=== PATIENT | male | born 1985 | race Caucasian/White ===

== ENCOUNTER 2017-03-21 20:26 | Emergency (ER) | payer OTHER ==
[2017-03-21 20:28] VITALS: BP 173/100; PULSE 85; RESP 16; O2SAT 100
[2017-03-21 21:00] VITALS: TEMP 98
[2017-03-21] MEDS ORDERED: diphenhydrAMINE HCL 25 MG CAP PO ONE (21:15)
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
[2017-03-21 22:49] VITALS: BP 167/110; PULSE 73; RESP 16; TEMP 98.1; O2SAT 100
[2017-03-21 23:04] VITALS: BP 170/117
== END 2017-03-21 23:25 | disposition home or self-care (01) ==
LOC: NEPE 20:26
DX: T78.40XA Allergy, unspecified, initial encounter (principal); R03.0 Elevated blood-pressure reading, without diagnosis of hypertension; X58.XXXA Exposure to other specified factors, initial encounter; Y93.G3 Activity, cooking and baking; Y99.0 Civilian activity done for income or pay
CPT/HCPCS: 99282

== ENCOUNTER 2017-05-14 17:45 | Emergency (ER) | payer OTHER ==
[~2017-05-14] VITALS: Ht 188 cm; Wt 104.5 kg
[2017-05-14 17:50] VITALS: BP 168/109; PULSE 109; RESP 20; TEMP 98.6; O2SAT 98
[2017-05-14] MEDS ORDERED: TETANUS/DIPHTHERIA TOXOID ADULT 0.5 ML VIAL IM ONE (18:30)
[2017-05-14] MEDS ORDERED: GELATIN 12 MM/7 MM FOAM TOPICAL ONE (18:30)
[2017-05-14] MEDS ORDERED: CEPHALEXIN MONOHYDRATE 500 MG CAP PO ONE (18:30)
[2017-05-14] MEDS ORDERED: HYDR-3516 PO (19:07)
[2017-05-14] MEDS ORDERED: CEPH-460 PO (19:07)
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
[2017-05-14] MEDS ORDERED: ACETAMINOPHEN/HYDROcodone 325 MG/5 MG TAB PO ONE (19:15)
== END 2017-05-14 19:43 | disposition home or self-care (01) ==
LOC: NEPD 17:45
DX: S61.012A Laceration without foreign body of left thumb without damage to nail, initial encounter (principal); W26.0XXA Contact with knife, initial encounter; Y93.G1 Activity, food preparation and clean up; Y99.0 Civilian activity done for income or pay; Z23 Encounter for immunization
CPT/HCPCS: 12001; 90471; 90714

== ENCOUNTER 2017-09-15 21:45 | Emergency (ER) | payer OTHER ==
[~2017-09-15] VITALS: Ht 185.4 cm; Wt 105.0 kg
[~2017-09-15 21:45] MED LIST: CEPH-460 PO; HYDR-3516 PO
[2017-09-15] MEDS ORDERED: PROT40TA PO (21:51)
[2017-09-15 22:03] VITALS: BP_SYST 173; BP_SYST 179; BP_DIAS 114; BP_DIAS 120; PULSE 92; RESP 18; O2SAT 98
[2017-09-15] MEDS ORDERED: OMEP40CA2 PO (22:05)
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
[2017-09-15] MEDS ORDERED: ACETAMINOPHEN 325 MG TAB PO ONE (22:45)
--- NOTE | 2017-09-15 23:03 | RADRPT ---
EXAM DATE: 09/15/2017 10:57 PM EDT AGE/SEX: 32 years / Male INDICATIONS: Trauma. Hit top of head on metal shelve. CLINICAL DATA: This is the patient's initial encounter. Patient reports that signs and symptoms have been present for 1 day and indicates a pain score of 5/10. MEDICAL/SURGICAL HISTORY: . Substance abuse . RADIATION DOSE: 56.35 CTDI (mGy) COMPARISON: No prior exams available for comparison. TECHNIQUE: CT of the head without contrast. Using automated exposure control and adjustment of the mA and/or kV according to patient size, radiation dose was kept as low as reasonably achievable to ob tain optimal diagnostic quality images. FINDINGS: There is no evidence for intracranial hemorrhage, mass effect, mass lesions, edema, or extr a-axial fluid collections. The visualized bony structures appear intact. The ventricles are normal size for the patient's age. There are no signs of acute infarction for technique. CONCLUSION: Unremarkable study. Electronically signed by: Lupe Woodall MD 09/15/2017 11:02 PM EDT
[2017-09-15] MEDS ORDERED: ZOFR4TAB3 SL (23:20)
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
[2017-09-16] MEDS ORDERED: cloNIDine HCL 0.1 MG TAB PO ONE
== END 2017-09-16 00:45 | disposition home or self-care (01) ==
LOC: NEPC 21:45
DX: S00.01XA Abrasion of scalp, initial encounter (principal); I10 Essential (primary) hypertension; F12.90 Cannabis use, unspecified, uncomplicated; W22.8XXA Striking against or struck by other objects, initial encounter
CPT/HCPCS: 70450